=== PATIENT | female | born 1980 | race Caucasian/White ===

== ENCOUNTER 2020-02-13 22:19 | Emergency (ER) | payer BC, OTHER ==
[~2020-02-13] VITALS: Ht 180.3 cm; Wt 86.2 kg
[~2020-02-13 22:19] MED LIST: IBUPROFEN 600600 M1 PO; LEVOTHYROXINE0.2 M1 PO; MACROBID 100 M100 M1 PO; MEDROLDOSEPACK PO; NICODERM CQ1 EAC1; OMEPRAZOLE40 MG PO; OS-CAL 500+D C1 EACH PO; PROZAC 20 MG20 M1; REQUIP0.5 MG PO
[2020-02-14] MEDS ORDERED: MOBIC7.5 MG PO (01:47)
[2020-02-14 02:02] VITALS: BP 142/79
== END 2020-02-14 01:50 | disposition home or self-care (01) ==
LOC: ER 22:19
DX: M25.562 Pain in left knee (principal); K21.9 Gastro-esophageal reflux disease without esophagitis; Z88.1 Allergy status to other antibiotic agents; Z79.899 Other long term (current) drug therapy; Z85.850 Personal history of malignant neoplasm of thyroid